=== PATIENT | female | born 1985 | race Caucasian/White ===

== ENCOUNTER 2016-03-21 15:40 | Emergency (ER) | payer SELFPAY ==
[~2016-03-21 15:40] MED LIST: CLIN300C86 PO; HYDR-971 PO; METF500T4 PO; SITA50TA PO
[2016-03-21 15:49] VITALS: BP 112/66
[2016-03-21] MEDS ORDERED: HYDROCODONE/APAP 5/325MG TABLET. PO ONE (16:00)
[2016-03-21] MEDS ORDERED: HYDR-971 PO (16:24)
[2016-03-21] MEDS ORDERED: CYCL10TA2 PO (16:24)
--- NOTE | 2016-03-21 16:25 | PHYS DOC ---
Past Medical History Past Medical History: Anxiety, Diabetes-Type II Additional Past Medical Histor: CHRONIC BACK PAIN, DDD Past Surgical History: No Surgical History Alcohol Use: None Drug Use: None Adult General Chief Complaint Chief Complaint: BACK PAIN OR INJURY HPI HPI Patient is a 30 year old female with history of anxiety, diabetes type 2, chronic back pain, presents today with moderate bilateral lower back pain radiating to bilateral lower extremities that got worse in the last 3 days. Patient denies any injury. Denies any loss of bowel bladder function. Denies any numbness and tingling to bilateral lower extremities. She states the pain is worse when she is ambulating. She states she has tried taking naproxen with no relief. She states she typically is able to manage this pain at home but today it's been very severe. Review of Systems Review of Systems Constitutional: Denies fever or chills [] Eyes: Denies change in visual acuity, redness, or eye pain [] GI: Denies abdominal pain, nausea, vomiting, bloody stools or diarrhea [] : Denies dysuria or hematuria [] Musculoskeletal: Bilateral low back pain radiating to bilateral lower extremities Integument: Denies rash or skin lesions [] Neurologic: Denies headache, focal weakness or sensory changes [] Endocrine: Denies polyuria or polydipsia [] Current Medications Current Medications Current Medications Medications (Trade) Dose Ordered Sig/Malcolm Start Time Stop Time Status Last Admin Dose Admin Acetaminophen/ Hydrocodone Bitart (Lortab 5/325) 2 tab 1X ONCE 03/21/16 16:00 03/21/16 16:11 DC 03/21/16 16:15 2 TAB Allergies Allergies Allergies Coded Allergies Type Severity Reaction Last Updated Verified azithromycin Allergy Unknown Rash 02/02/15 Yes oxycodone Allergy Unknown Rash 02/02/15 Yes tramadol Allergy Unknown Rash 02/02/15 Yes Physical Exam Physical Exam Constitutional: Well developed, well nourished, no acute distress, non-toxic appearance. [] HENT: Normocephalic, atraumatic, bilateral external ears normal, oropharynx moist, no oral exudates, nose normal. [] Abdomen: Bowel sounds normal, soft, no tenderness, no masses, no pulsatile masses. [] Skin: Warm, dry, no erythema, no rash. [] Back: Diffuse tenderness to paraspinal muscles of bilateral low lumbar region, no midline tenderness, no CVA tenderness. [] Extremities: No tenderness, no cyanosis, no clubbing, ROM intact, no edema. [] Neurologic: Alert and oriented X 3, normal motor function, normal sensory function, no focal deficits noted. [] Psychologic: Affect normal, judgement normal, mood normal. [] Current Patient Data Vital Signs Vital Signs Date Time Temp Pulse Resp B/P Pulse Ox O2 Delivery O2 Flow Rate FiO2 03/21/16 15:49 97.9 98 20 97 Room Air 97.9 EKG EKG [] Radiology/Procedures Radiology/Procedures [] Course & Med Decision Making Course & Med Decision Making Pertinent Labs and Imaging studies reviewed. (See chart for details) Patient is in the ED with exacerbation of chronic bilateral low back pain with bilateral sciatica. She has tried Flexeril and naproxen with no relief. She has history of diabetes. I gave her prescription for short supply of hydrocodone to continue taking with the Flexeril and naproxen. She has a PCP, recommended she follows up in the next 7 days. Dragon Disclaimer Dragon Disclaimer This electronic medical record was generated, in whole or in part, using a voice recognition dictation system. Departure Departure Impression: Primary Impression: Acute exacerbation of chronic low back pain Additional Impression: Sciatica Disposition: 01 HOME, SELF-CARE Condition: STABLE Referrals: SYLVIA NAZARIO (PCP) Follow-up with your own doctor in the next 7 days Patient Instructions: Back Pain, Adult, Sciatica Additional Instructions: You were seen for exacerbation of chronic back pain with sciatica. Take the prescribed medicines as needed. You can apply heat or ice to your back. You can exercise as tolerated. Follow-up with your own doctor in the next 7 days. Come back to the emergency room if symptoms worsen especially if you develop any loss of bowel bladder function. Scripts Cyclobenzaprine Hcl 10 Mg Tablet1 Tab PO TID #30 TAB Prov:BOLA HEDRICK APRN 03/21/16 Hydrocodone/Apap 5-325 (Elmo 5-325 Tablet)1 Each Tablet1-2 Tab PO Q4-6HRS #20 TAB Prov:RYLEYBOLA [employer] 03/21/16 Problem Qualifiers Additional Impression: Sciatica Laterality: bilateral Qualified Code: M54.31 - Sciatica, right side KEMIDEANNABOLA DERRICK Mar 21, 2016 16:25
== END 2016-03-21 16:37 | disposition home or self-care (01) ==
LOC: ER 15:40
DX: G89.29 Other chronic pain (principal); M54.5 Low back pain; M54.31 Sciatica, right side; E11.9 Type 2 diabetes mellitus without complications; Z88.1 Allergy status to other antibiotic agents; Z88.5 Allergy status to narcotic agent; Z88.6 Allergy status to analgesic agent
CPT/HCPCS: 99283

== ENCOUNTER 2019-08-20 22:12 | Emergency (ER) | payer OTHER ==
[2019-04-09 11:08] VITALS: BP 122/81
[~2019-08-20 22:12] MED LIST changes: +ALPR0.5T PO; +CLIN300C8 PO; -CLIN300C86 PO; +CYCL10TA2 PO; +DICL75TA PO; +DOXY100C14 PO; +ERTU15TA PO; +HYDR-2761 PO; +HYDR-3164 PO; -HYDR-971 PO; +INSU100I13 SQ; +INSU100I17 SQ; +METF500T16 PO; -METF500T4 PO; +NYST100054 PO; +PROM5SYR2 PO; +SITA100T PO; +VENTOLIN HFA18 GM INH
[2019-08-21] MEDS ORDERED: NAPR-514 PO (10:54)
== END 2019-08-21 00:11 | disposition left against medical advice (07) ==
LOC: ER 22:12
DX: M79.605 Pain in left leg (principal); Z53.21 Procedure and treatment not carried out due to patient leaving prior to being seen by health care provider

== ENCOUNTER 2019-08-21 08:53 | Emergency (ER) | payer OTHER ==
[~2019-08-21] VITALS: Ht 149.9 cm; Wt 95.0 kg
[2019-08-21 09:21] VITALS: BP 141/68
[2019-08-21] MEDS ORDERED: HYDROcodone/APAP 5/325MG 1 TAB TABLET PO ONE (09:30)
--- NOTE | 2019-08-21 10:08 | RAD ---
VENOUS LOWER EXTREMITY LEFT History: Reason: pain, swelling / Spl. Instructions: / History: Comparison: None. Discussion: Multiple longitudinal and transverse high resolution real-time images of the venous system of left lower extremity were obtained with color and Doppler sampling. The common femoral, superficial femoral, popliteal and proximal calf veins are all patent and demonstrate normal flow and compressibility. Normal respiratory phasicity and augmentation is present. Impression: 1. No evidence of deep vein thrombosis. Electronically signed by: Shayne Mahoney DO (08/21/2019 10:05 AM) [id number]
[2019-08-21] MEDS ORDERED: NAPR-514 PO (10:54)
--- NOTE | 2019-08-21 10:55 | PHYS DOC ---
Past Medical History Past Medical History: Anxiety, Diabetes-Type II Additional Past Medical Histor: CHRONIC BACK PAIN, DDD Past Surgical History: No Surgical History Smoking Status: Never Smoker Alcohol Use: Rarely Drug Use: None General Adult EDM: Chief Complaint: LOWER EXT PAIN HPI: HPI: Patient is a 34-year-old female who presents with left calf pain. She states she jumped off a step and heard a pop today. She states this is happened now total of 3 times. She states she is not sure how she initially injured it. She thinks it slightly swollen now and is definitely painful. [] Review of Systems: Review of Systems: Constitutional: Denies fever or chills. [] Eyes: Denies change in visual acuity. [] HENT: Denies nasal congestion or sore throat. [] Respiratory: Denies cough or shortness of breath. [] Cardiovascular: Denies chest pain or edema. [] GI: Denies abdominal pain, nausea, vomiting, bloody stools or diarrhea. [] : Denies dysuria. [] Musculoskeletal: Per HPI [] Integument: Denies rash. [] Neurologic: Denies headache, focal weakness or sensory changes. [] Endocrine: Denies polyuria or polydipsia. [] Lymphatic: Denies swollen glands. [] Psychiatric: Denies depression or anxiety. [] Heart Score: Risk Factors: Risk Factors: DM, Current or recent (<one month) smoker, HTN, HLP, family history of CAD, obesity. Risk Scores: Score 0 - 3: 2.5% MACE over next 6 weeks - Discharge Home Score 4 - 6: 20.3% MACE over next 6 weeks - Admit for Clinical Observation Score 7 - 10: 72.7% MACE over next 6 weeks - Early Invasive Strategies Current Medications: Current Medications Medications (Trade) Dose Ordered Sig/Malcolm Start Time Stop Time Status Last Admin Dose Admin Acetaminophen/ Hydrocodone Bitart (Lortab 5/325) 2 tab 1X ONCE 08/21/19 09:30 08/21/19 09:58 DC 08/21/19 10:00 2 TAB Allergies: Allergies: Allergies Coded Allergies Type Severity Reaction Last Updated Verified azithromycin Allergy Intermediate Rash 04/05/19 Yes oxycodone Allergy Intermediate Rash 04/05/19 Yes tramadol Allergy Intermediate Rash 04/05/19 Yes lanolin Allergy Mild Swelling 04/07/19 Yes Physical Exam: PE: Constitutional: Well developed, well nourished, no acute distress, non-toxic appearance. [] HENT: Normocephalic, atraumatic, bilateral external ears normal, oropharynx moist, no oral exudates, nose normal. [] Eyes: PERRLA, EOMI, conjunctiva normal, no discharge. [] Neck: Normal range of motion, no tenderness, supple, no stridor. [] Cardiovascular:Heart rate regular rhythm, no murmur [] Lungs & Thorax: Bilateral breath sounds clear to auscultation [] Abdomen: Bowel sounds normal, soft, no tenderness, no masses, no pulsatile masses. [] Skin: Warm, dry, no erythema, no rash. [] Back: No tenderness, no CVA tenderness. [] Extremities: She has some tender to palp in the left calf is slightly swollen negative Jhon [] Neurologic: Alert and oriented X 3, normal motor function, normal sensory function, no focal deficits noted. [] Psychologic: Anxious. [] Current Patient Data: Vital Signs: Vital Signs Date Time Temp Pulse Resp B/P (MAP) Pulse Ox O2 Delivery O2 Flow Rate FiO2 08/21/19 09:21 97.0 88 16 141/68 (92) 97 Room Air 97.0 EKG: EKG: [] Radiology/Procedures: Radiology/Procedures: [] Impression: REASON: pain, swelling PROCEDURE: VENOUS LOWER EXTREMITY LEFT VENOUS LOWER EXTREMITY LEFT History: Reason: pain, swelling / Spl. Instructions: / History: Comparison: None. Discussion: Multiple longitudinal and transverse high resolution real-time images of the venous system of left lower extremity were obtained with color and Doppler sampling. The common femoral, superficial femoral, popliteal and proximal calf veins are all patent and demonstrate normal flow and compressibility. Normal respiratory phasicity and augmentation is present. Impression: 1. No evidence of deep vein thrombosis. Course & Med Decision Making: Course & Med Decision Making Pertinent Labs and Imaging studies reviewed. (See chart for details) [] Dragon Disclaimer: Dragon Disclaimer: This electronic medical record was generated, in whole or in part, using a voice recognition dictation system. Departure Departure Impression: Primary Impression: Gastrocnemius strain, left Qualified Codes: S86.112A - Strain of other muscle(s) and tendon(s) of poste rior muscle group at lower leg level, left leg, initial encounter Disposition: HOME, SELF-CARE Condition: STABLE Referrals: HARRISON APPIAH MD (PCP) Patient Instructions: Muscle Strain Additional Instructions: Return to the emergency department with any new or concerning symptoms Scripts Naproxen (NAPROXEN) 500 Mg Tablet 1 TAB PO BID PRN for PAIN, #30 TAB 1 Refill Prov: JAKE ROSE DO 08/21/19 Justicifation of Admission Dx: Justifications for Admission: Justification of Admission Dx: No JAKE ROSE DO Aug 21, 2019 10:54
== END 2019-08-21 11:11 | disposition home or self-care (01) ==
LOC: ER 08:53
DX: S86.112A Strain of other muscle(s) and tendon(s) of posterior muscle group at lower leg level, left leg, initial encounter (principal); E11.9 Type 2 diabetes mellitus without complications; G89.29 Other chronic pain; Z88.1 Allergy status to other antibiotic agents; Z88.5 Allergy status to narcotic agent; Z88.6 Allergy status to analgesic agent; Z88.8 Allergy status to other drugs, medicaments and biological substances; X50.9XXA Other and unspecified overexertion or strenuous movements or postures, initial encounter; Y93.39 Activity, other involving climbing, rappelling and jumping off; Y92.89 Other specified places as the place of occurrence of the external cause; Y99.8 Other external cause status
CPT/HCPCS: 93971; 99284

== ENCOUNTER → 2020-11-08 | Outpatient (CLI) | payer OTHER ==
[~2020-11-08] MED LIST changes: -CLIN300C8 PO; +CLIN300C9 PO; +DOXY-181 PO; -DOXY100C14 PO; +FLUO40CA2 PO; +IBUP-1060 PO; +INSU100V13 SQ; +NAPR-514 PO; +PANT40TA77 PO
--- NOTE | 2020-11-08 13:59 | PDOC1 ---
INITIAL PAIN CONSULT DATE OF SERVICE: DOS: DATE: 11/08/20 TIME: 13:54 CHIEF COMPLAINT: Chief Complaint: Low back and bilateral lower extremity pain HISTORY OF PRESENT ILLNESS: 35-year-old female presents with history of pain low back bilateral lower extremities greater on the left than the right but present for about 10 years on and off in intensity not the result of any specific injury or accident that she is aware of but getting worse with time and activity patient has had physical therapy which was helpful initially has been doing that for the past 2 years but is still doing the exercises at home with only minimal improvement patient reports pain in the low back rating the bilateral lower extremities posterior gluteus posterior thighs posterior calves lateral thighs and calfs as well into the lower leg and the foot on the left side, but not as far on the right. Patient describes as sharp and stabbing throbbing and aching in the back shooting the legs intermittent intensity but radiating to bilateral lower extremities. Patient rates her disability rating 0-10 10 being the worst is a 4 with family home responsibilities sexual haven self-care 5 with recreation and occupational activity 7 with social activity 8 with life support activities. Patient has been taking ibuprofen as well as cyclobenzaprine also hydrocodone the cyclobenzaprine hydrocodone are helpful ibuprofen is only been mildly helpful. Patient reports it wakes her from sleep at least 2-3 times at night does not affect her bowel bladder control does affect her ability to walk although she is not using any assistive devices to ambulate. Patient did have some plain films of the lumbar spine showing good disc base tapering L5-S1 with vacuum disc and osteophytes. Patient reports no bowel or bladder incontinence. PAST MEDICAL HISTORY: PMH: Diabetes PREVIOUS SURGERIES: Past Surgical Hx: x2 CURRENT MEDICATIONS: Current Meds: Active Scripts Medications Dose Route/Sig Max Daily Dose Days Date Category Levemir (Insulin Detemir) 100 Unit/1 Ml Vial 1 Unit SQ HS 11/08/20 Reported Cyclobenzaprine Hcl 10 Mg Tablet 1 Tab PO TID 11/08/20 Reported Ibuprofen 800 Mg Tablet 800 Mg PO TID PRN 11/08/20 Reported Fluoxetine Hcl 40 Mg Capsule 1 Cap PO DAILYWBKFT 11/08/20 Reported Pantoprazole Sodium (Pantoprazole Sodium) 40 Mg Tablet.dr 40 Mg PO DAILYAC 11/08/20 Reported Doxycycline Monohydrate 100 Mg Capsule 1 Cap PO BID 5 04/09/19 Rx Steglatro (Ertugliflozin Pidolate) 15 Mg Tablet 15 Mg PO DAILY 04/05/19 Reported Novolog Flexpen (Insulin Aspart) 100 Unit/1 Ml Insuln.pen 30 Unit SQ TIDWMEALS 04/05/19 Reported Januvia (Sitagliptin Phosphate) 100 Mg Tablet 1 Tab PO DAILY 04/05/19 Reported Metformin Hcl 500 Mg Tablet 1 Tab PO BID 06/12/15 Reported ALLERGIES; Allergies: Coded Allergies: azithromycin (Verified Allergy, Intermediate, Rash, 04/05/19) oxycodone (Verified Allergy, Intermediate, Rash, 04/05/19) has taken and can tolerate hydrocodone tramadol (Verified Allergy, Intermediate, Rash, 04/05/19) lanolin (Verified Allergy, Mild, Swelling, 04/07/19) FAMILY HISTORY: Family Hx: Diabetes, thyroid disease, hypertension, cholesterolemia SOCIAL HISTORY: Social Hx: Patient drinks alcohol 1-3 drinks every 1 to 2 months not smoke says any illegal illicit or recreational drugs is single lives with 1 child at home lives 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 PHYSICAL EXAM: VS: Blood pressure is 118/88 pulse 103 respirations 16 temperature is 98.2 F height is 4 foot 11 inches weight is 235 pounds. PE: PHYSICAL EXAMINATION: GENERAL: The patient is awake, alert, oriented, appropriate, very pleasant in demeanor HEENT: Shows normocephalic, atraumatic. Extraocular movements are intact and symmetrical. Oral cavity: Mucous membranes moist and pink. Dentition is inta ct. NECK: Shows anterior throat supple without palpable lymphadenopathy noted. Swallow reflex symmetrical. CHEST: Shows normal on inspection. Breath sounds are clear bilaterally, distant but no rales rhonchi or wheeze auscultated. HEART: Shows S1, S2 clear. No murmurs auscultated. ABDOMEN: Soft, nontender, nondistended, obese. No palpable organomegaly is noted. No rebound or guarding demonstrated. BACK: Shows spine grossly in the midline. Normal-appearing cervical lordotic curvature. There is slightly increased thoracic kyphosis, some minor flattening of the lumbar lordotic curvature. Lumbar paraspinous muscles show symmetrical on inspection, on palpation shows some moderate tenderness diffusely throughout the upper, middle and lower distribution of the paraspinous muscles bilaterally and also into the lower thoracic paraspinous musculature, firm and tender, but without specific trigger points, without radiation of pain. The patient has good rotational motion of the lumbar spine, both laterally as well as extension and flexion without significant difficulty. No tenderness over the spinous processes, sacrum or sacroiliac regions. EXTREMITIES: Lower extremities show deep tendon reflexes 2+ in the patellar and tendo calcaneus tendons. Motor exam is 5 on a scale of 5 with right dorsiflexion, extension, quadriceps and hamstring flexion and 4/5 on the left. Peripheral pulses are 1 posterior tibial. No peripheral edema is noted bilaterally. Lower extremities are warm and dry to touch, equal in color and appearance. Straight leg raise noted to be positive on the left at approximate 45 degrees decreased with knee flexion, negative on the right. Gaenslen's and Paresh's maneuvers are negative bilaterally. The patient is able to stand, stand on her toes out significant difficulty or loss of balance, walks with a slight favoring gait does appear fairly left lower extremity mildly but not use any assistive devices canes or walker to ambulate. SKIN: Shows warm and dry, good turgor. No edema. No sores, rashes or bruising throughout. IMPRESSION: Impression: 35-year-old female with approximate 10-year history low back bilateral lower extremity pain and radicular fashion worse on the left than the right following L5-S1 dermatomal distribution. Lumbar spine films as noted Diabetes, insulin-dependent Obesity Plan: Options were discussed with the patient eluding conservative management continued physical therapies interventional techniques. As patient is currently doing physical therapies and doing the exercises as well on her own as well taking oral analgesics and without significant improvement he would like to pursue interventional techniques, we did discuss a lumbar epidural steroid injections description as well as anatomical models to describe the procedure. We will wait for preauthorization with patient is a certified or emesis is obtained, we will proceed with translaminar approach L5-S1 lumbar epidural steroid injection at that time with fluoroscopic guidance. In the meantime, patient continue with stretching strength exercises and oral analgesics as currently. NICOLLE BENNETT MD Nov 08, 2020 13:59
== END | disposition home or self-care (01) ==
LOC: PNCL 09:30
PROVIDERS: ATTEND Anesthesiology
DX: M54.5 Low back pain (principal); M79.605 Pain in left leg; M79.604 Pain in right leg; E11.9 Type 2 diabetes mellitus without complications; E66.9 Obesity, unspecified; F41.9 Anxiety disorder, unspecified; F32.9 Major depressive disorder, single episode, unspecified; Z79.4 Long term (current) use of insulin; Z79.899 Other long term (current) drug therapy; Z98.890 Other specified postprocedural states; Z72.89 Other problems related to lifestyle
CPT/HCPCS: G0463

== ENCOUNTER → 2020-11-29 | Outpatient (CLI) | payer OTHER ==
[~2020-11-29] MED LIST changes: +CLIN-94 PO; -CLIN300C9 PO; +IOHEXOL 180 MG/ML 10 ML VIAL. ONE; +methylPREDNISolone ACETATE 80 MG/ML VIAL. ONE
--- NOTE | 2020-11-29 09:05 | PDOC ---
Progress Note - Pain Clinic Date of Service: DOS: DATE: 11/29/20 TIME: 09:01 Diagnosis: Dx: Lumbar radiculopathy with lumbar degenerative disc disease History or Present Illness: HPI: 35-year-old female returns for follow-up with complaints of low back and right lower extremity pain patient reports pain is radiating now more into the right side than it was on the left which was previously patient reports on the right side is her main complaint is low back and right lower extremity pain rating posterior gluteus posterior thigh posterior calf some on the left as well as it was previously but now the right-sided becoming much more noticeable patient r eports is a 10 on scale 10 is worse over the past week 8 on average 5 its least is an 8 today patient scribes aching sharp shooting can be severe on and off in intensity worse with walking standing changing positions better with sitting or laying down but is waking from sleep about once every 6 hours patient reports no bowel or bladder incontinence no loss of motor function but significant fatigability now with the right and left lower extremities but no falls. Physical Exam: VS: Blood pressure is 149/87 pulse 94 respiration 16 temperature 98.1 F weight is 236 pounds PE: PHYSICAL EXAMINATION: GENERAL: The patient is awake, alert, oriented, appropriate, very pleasant in demeanor HEENT: Shows normocephalic, atraumatic. Extraocular movements are intact and symmetrical. Oral cavity: Mucous membranes moist and pink. Dentition is intact. NECK: Shows anterior throat supple without palpable lymphadenopathy noted. Swallow reflex symmetrical. CHEST: Shows normal on inspection. Breath sounds are clear bilaterally, no rales rhonchi wheezes also. HEART: Shows S1, S2 clear. No murmurs auscultated. ABDOMEN: Soft, nontender, nondistended, obese. No palpable organomegaly is noted. BACK: Shows spine grossly in the midline. Normal-appearing cervical lordotic curvature. There is slightly increased thoracic kyphosis, some minor flattening of the lumbar lordotic curvature. Lumbar paraspinous muscles show symmetrical on inspection, on palpation shows some moderate tenderness diffusely throughout the upper, middle and lower distribution of the paraspinous muscles, but without specific trigger points, without radiation of pain. The patient has good rotational motion of the lumbar spine, both laterally as well as extension and flexion without significant difficulty. EXTREMITIES: Lower extremities show deep tendon reflexes 2+ in the patellar and tendo calcaneus tendons. Motor exam is 5 on a scale of 5 with right dorsiflexion, extension, quadriceps and hamstring flexion and 4/5 on the left. Peripheral pulses are 1+ posterior tibial. No peripheral edema is noted bilaterally. Lower extremities are warm and dry to touch, equal in color and appearance. SKIN: Shows warm and dry, good turgor. No edema. No sores, rashes or bruising throughout. Procedure: Procedure: Options discussed with patient. Patient chart reviewed his current medication regimen updated current view of systems updated today as well. We will proceed with a lumbar epidural steroid injection today with fluoroscopic guidance. Risks were discussed including but not limited to: Bleeding, infection, possibility of epidural hematoma and subsequent neurological compromise, dural puncture, headaches, spinal cord and/or nerve damage, side effects of steroid medication, and poor results regarding pain control. Patient understands and wished to proceed. Patient return to the clinic in approximate 2 weeks for follow-up, was counseled as return appointment, activity level, and side effect to be aware of. Medication Injected: Med Injected: Procedure is lumbar epidural steroid injection under local anesthetic using sterile prep and drape at the L5-S1 level using C-arm fluoroscopic guidance in both AP and lateral views medications injected is 120 mg Depo-Medrol +10mL preservative-free normal saline and 2 mL contrast- condition at discharge is stable patient tolerated procedure well had no complications. Condition at Discharge: Condition at Discharge: Condition at discharge is stable, patient already procedure well and had no complications. NICOLLE BENNETT MD Nov 29, 2020 09:05
--- NOTE | 2020-11-29 09:06 | PDOC4 ---
Procedure Note: ICD 10 Code: ICD 10 Code: M54.17 M51.87 Procedure Note: Patient was consented for lumbar epidural steroid injection with fluoroscopic guidance. Risks were discussed including but not limited to: Bleeding, infection, possibility of epidural hematoma and subsequent neurological compromise, dural puncture, headaches, spinal cord and/or nerve damage, side effects of steroid medication, and poor results regarding pain control. Patient understands and wished to proceed. Procedure is lumbar epidural steroid injection under local anesthetic using sterile prep and drape at the L5-S1 level using C-arm fluoroscopic guidance in both AP and lateral views medications injected is 120 mg Depo-Medrol +10mL preservative-free normal saline and 2 mL contrast- condition at discharge is stable patient tolerated procedure well had no complications. NICOLLE BENNETT MD Nov 29, 2020 09:06
== END | disposition home or self-care (01) ==
LOC: PNCL 08:13
PROVIDERS: ATTEND Anesthesiology
DX: M51.16 Intervertebral disc disorders with radiculopathy, lumbar region (principal); E11.9 Type 2 diabetes mellitus without complications; F41.9 Anxiety disorder, unspecified; F32.9 Major depressive disorder, single episode, unspecified; Z79.4 Long term (current) use of insulin; Z79.899 Other long term (current) drug therapy; Z88.1 Allergy status to other antibiotic agents; Z88.8 Allergy status to other drugs, medicaments and biological substances; Z72.89 Other problems related to lifestyle
CPT/HCPCS: 62323; J1040; Q9965

== ENCOUNTER 2021-05-15 16:57 | Emergency (ER) | payer OTHER ==
[~2021-05-15] VITALS: Ht 149.9 cm; Wt 105.0 kg
[~2021-05-15 16:57] MED LIST changes: +CYCL10TA19 PO; -CYCL10TA2 PO; -IOHEXOL 180 MG/ML 10 ML VIAL. ONE; -methylPREDNISolone ACETATE 80 MG/ML VIAL. ONE
[2021-05-15 17:00] VITALS: BP 137/97
--- NOTE | 2021-05-15 17:24 | PHYS DOC ---
Past Medical History Past Medical History: Anxiety, Diabetes-Type II Additional Past Medical Histor: CHRONIC BACK PAIN, DDD Past Surgical History: No Surgical History Smoking Status: Never Smoker Alcohol Use: Rarely Drug Use: None General Adult EDM: Chief Complaint: ABDOMINAL PAIN HPI: HPI: Patient is a 36 year old female who presents with chronic upper abdominal pain with nausea and vomiting that will go up into her chest with some burning type pain for last 2 months. She states it is intermittent. She states is just worse now. She states she has an appointment with Dr. Eli for an EGD this coming Wednesday. She states that she takes Zofran and omeprazole and diabetes medications daily. She denies shortness of breath, dizziness, headache, fever, cough, alcohol use, drug use, diarrhea, urinary symptoms, back pain, syncope, numbness or tingling. Review of Systems: Review of Systems: Constitutional: Denies fever or chills. [] Eyes: Denies change in visual acuity. [] HENT: Denies nasal congestion or sore throat. [] Respiratory: Denies cough or shortness of breath. [] Cardiovascular: +chest pain or denies edema. [] GI: + abdominal pain, +nausea, +vomiting, denies bloody stools or diarrhea. [] : Denies dysuria. [] Musculoskeletal: Denies back pain or joint pain. [] Integument: Denies rash. [] Neurologic: Denies headache, focal weakness or sensory changes. [] Endocrine: Denies polyuria or polydipsia. [] Lymphatic: Denies swollen glands. [] Psychiatric: Denies depression or anxiety. [] Heart Score: C/O Chest Pain: Yes HEART Score for Chest Pain: HEART Score for Chest Pain Response (Comments) Value History Slighlty/Non-Suspicious 0 ECG Normal 0 Age < 45 0 Risk Factors 1 or 2 Risk Factors 1 Troponin < Normal Limit 0 Total 1 Risk Factors: Risk Factors: DM, Current or recent (<one month) smoker, HTN, HLP, family history of CAD, obesity. Risk Scores: Score 0 - 3: 2.5% MACE over next 6 weeks - Discharge Home Score 4 - 6: 20.3% MACE over next 6 weeks - Admit for Clinical Observation Score 7 - 10: 72.7% MACE over next 6 weeks - Early Invasive Strategies Allergies: Allergies: Allergies Coded Allergies Type Severity Reaction Last Updated Verified azithromycin Allergy Intermediate Rash 04/05/19 Yes oxycodone Allergy Intermediate Rash 04/05/19 Yes tramadol Allergy Intermediate Rash 04/05/19 Yes lanolin Allergy Mild Swelling 04/07/19 Yes Physical Exam: PE: Constitutional: Well developed, well nourished, no acute distress, non-toxic appearance. [] HENT: Normocephalic, atraumatic, bilateral external ears normal, oropharynx moist, no oral exudates, nose normal. [] Eyes: PERRLA, EOMI, conjunctiva normal, no discharge. [] Neck: Normal range of motion, no tenderness, supple, no stridor. [] Cardiovascular:Heart rate regular rhythm, no murmur [] Lungs & Thorax: Bilateral breath sounds clear to auscultation [] Abdomen: Bowel sounds normal, soft, right and left upper quadrant tenderness, no masses, no pulsatile masses. [] Skin: Warm, dry, no erythema, no rash. [] Back: No tenderness, no CVA tenderness. [] Extremities: No tenderness, no cyanosis, no clubbing, ROM intact, no edema. [] Neurologic: Alert and oriented X 3, normal motor function, normal sensory function, no focal deficits noted. [] Psychologic: Affect normal, judgement normal, mood normal. [] Current Patient Data: Vital Signs: Vital Signs Date Time Temp Pulse Resp B/P (MAP) Pulse Ox O2 Delivery O2 Flow Rate FiO2 05/15/21 17:00 98.2 91 18 137/97 (110) 98 Room Air 98.2 EKG: EK and read by Dr. Liz as a sinus rhythm and no STEMI Radiology/Procedures: Radiology/Procedures: [] Impression: [facility] [address] [place], [place] [id number] IMAGING REPORT Signed PATIENT: BLANCA JIN HACCOUNT: [id number] : 1985 LOCATION: ER AGE: 36 SEX: F EXAM STATUS: REG ER ORD. PHYSICIAN: ANDREINA MAIER APRN REASON: PAIN, VOMITING PROCEDURE: PORTABLE CHEST 1V XR CHEST 1V Clinical Indication: Reason: PAIN, VOMITING / Spl. Instructions: / History: Comparison: AP chest April 09, 2019. Findings: The cardiomediastinal silhouette is normal. Lungs are clear. There is no pneumothorax. No pleural effusion is appreciated. No acute bone abnormality. IMPRESSION: No acute cardiopulmonary process. Electronically signed by: Orville Hernandez MD (05/15/2021 5:46 PM) [facility] DICTATED and SIGNED BY: ORVILLE HERNANDEZ MD DATE: 05/15/21 1745 [facility] [address] [place] [address] IMAGING REPORT Signed PATIENT: BLANCA JIN HACCOUNT: [id number] : 1985 LOCATION: ER AGE: 36 SEX: F EXAM STATUS: REG ER ORD. PHYSICIAN: ANDREINA MAIER APRN REASON: PAIN,TENDERNESS IN UPPER QUADRANTS, VOMITING PROCEDURE: CT ABD PELV W/ IV CONTRST ONLY Exam: CT abdomen and pelvis with contrast INDICATION: Pain/tenderness and upper quadrant, vomiting TECHNIQUE: Sequential axial images through the abdomen and pelvis obtained following the administration of 75 mL of Isovue-370 IV contrast. Sagittal and coronal reformatted images were reconstructed from the axial data and reviewed. Exposure: One or more of the following in the visualized dose reduction techniques were utilized for this examination: 1. Automated exposure control 2. Adjustment of the MA and/or KV according to patient size 3. Use of iterative of reconstructive technique Comparisons: 06/12/2015 FINDINGS: Heart size is normal. No pericardial effusion. Visualized lung bases are clear. No pleural effusion. Liver, spleen, pancreas, gallbladder and adrenals are unremarkable. No perinephric inflammation or hydronephrosis. No renal or ureteral calculi are identified. Uterus is nonenlarged. No abnormal adnexal mass. Moderate amount stool is noted in the colon. Appendix is normal. Small bowel is unremarkable. No free intra-abdominal air or fluid. No obstruction. Abdominal aorta has normal course and caliber. Abdominal vasculature is patent. No enlarged intra-abdominal lymph nodes are identified. No suspicious osseous lesions or acute fractures. IMPRESSION: No acute process identified within the abdomen or pelvis. Electronically signed by: Bobby Davalos MD (05/15/2021 6:40 PM) [facility] DICTATED and SIGNED BY: BOBBY DAVALOS MD DATE: 05/15/211832 Course & Med Decision Making: Course & Med Decision Making Pertinent Labs and Imaging studies reviewed. (See chart for details) See HPI. Alert and oriented x4. Ambulatory with steady gait. Speaks in full clear sentences. Tenderness to the upper quadrants. Abdomen otherwise soft and nontender. Skin pink warm and dry. Afebrile. Chest x-ray shows no acute findings. CT abdomen pelvis shows no acute findings but does show moderate stool. Patient will be given senna laxative prescription and Zofran. Patient is successfully p.o. challenge. [] Dragon Disclaimer: Dragon Disclaimer: This electronic medical record was generated, in whole or in part, using a voice recognition dictation system. Departure Departure Impression: Primary Impression: Constipation Qualified Codes: K59.00 - Constipation, unspecified Additional Impression: Abdominal pain Qualified Codes: R10.9 - Unspecified abdominal pain Disposition: HOME / SELF CARE / HOMELESS Condition: STABLE Referrals: HARRISON APPIAH MD (PCP) Patient Instructions: Abdominal Pain (Nonspecific) Additional Instructions: Follow up on Wednesday with Dr De La Cruz for EGD as scheduled. Drink plenty of fluids. Stay away from spicy or fatty food and see if that helps your abdominal pain. Eat a high fiber diet. If anything worsens return to the ED. Scripts Sennosides/Docusate Sodium (SENNA PLUS TABLET) 1 Each Tablet 2 TAB PO QHS PRN for CONSTIPATION for 14 Days, #28 TAB 0 Refills Prov: ANDREINA MAIER APRN 05/15/21 Ondansetron (ONDANSETRON ODT) 4 Mg Tab.rapdis 1 TAB PO PRN Q6-8HRS, #16 TAB Prov: ANDREINA MAIER [employer]TER 05/15/21 ANDREINA MAIER APRN May 15, 2021 17:24
[2021-05-15] MEDS ORDERED: FAMOTIDINE 20 MG/2 ML VIAL IVP ONE (17:30)
[2021-05-15] MEDS ORDERED: ONDANSETRON PF 4 MG/2 ML VIAL. IVP ONE (17:30)
[2021-05-15] MEDS ORDERED: IV NORMAL SALINE 1000ML BAG 1,000 ML IV SCH (17:30)
[2021-05-15] MEDS ORDERED: fentaNYL PF VIAL 100 MCG/2 ML VIAL IVP ONE (17:30)
[2021-05-15 17:48] LABS: CLARITY,URINE CLEAR; COLOR,URINE YELLOW
--- NOTE | 2021-05-15 17:48 | RAD ---
XR CHEST 1V Clinical Indication: Reason: PAIN, VOMITING / Spl. Instructions: / History: Comparison: AP chest April 09, 2019. Findings: The cardiomediastinal silhouette is normal. Lungs are clear. There is no pneumothorax. No pleural eff usion is appreciated. No acute bone abnormality. IMPRESSION: No acute cardiopulmonary process. Electronically signed by: Orville Hernandez MD (05/15/2021 5:46 PM) [facility]
[2021-05-15 17:49] LABS: BACTERIA,URINE FEW /HPF (0-FEW); BILIRUBIN,URINE NEGATIVE (NEG); NITRITE,URINE NEGATIVE (NEG); PH,URINE 5.5 (<5.0-8.0); PROTEIN,URINE NEGATIVE (NEG-TRACE); RBC,URINE 0 /HPF (0-2); UROBILINOGEN,URINE 0.2 mg/dL (0.2 mg/dL); WBC,URINE 0 /HPF (0-4)
[2021-05-15 17:52] LABS: BARBITURATES NEG (NEG); BENZODIAZEPINES NEG (NEG); CANNABINOIDS NEG (NEG); COCAINE NEG (NEG); METHADONE NEG (NEG); OPIATES NEG (NEG); PHENCYCLIDINE NEG (NEG)
[2021-05-15 17:53] LABS: AMPHETAMINE/METHAMPHETAMINE NEG (NEG)
[2021-05-15 18:05] LABS: BASO # 0.1 x10^3/uL (0.0-0.2); BASO % 1 % (0-3); EOS # 0.4 x10^3/uL (0.0-0.7); EOS % 4 % (0-3); HEMATOCRIT 40.9 % (36.0-47.0); HEMOGLOBIN 13.2 g/dL (12.0-15.5); LYMPH % 31 % (24-48); MEAN CORPUSCULAR HEMOGLOBIN 24 pg (25-35); MEAN CORPUSCULAR HGB CONC 32 g/dL (31-37); MEAN CORPUSCULAR VOLUME 75 fL (79-100); MONO # 0.6 x10^3/uL (0.0-1.1); MONO % 7 % (0-9); NEUT # 5.7 x10^3/uL (1.8-7.7); NEUT % 58 % (31-73); PLATELET COUNT 270 x10^3/uL (140-400); RED BLOOD COUNT 5.42 x10^6/uL (3.50-5.40); RED CELL DISTRIBUTION WIDTH 16.4 % (11.5-14.5); WHITE BLOOD COUNT 9.8 x10^3/uL (4.0-11.0)
[2021-05-15 18:14] LABS: CALCIUM 8.7 mg/dL (8.5-10.1); CREATININE 0.8 mg/dL (0.6-1.0); GFR 81.6; POTASSIUM 3.7 mmol/L (3.5-5.1)
[2021-05-15] MEDS ORDERED: IOHEXOL 300 MG/ML 100ML VIAL. IV ONE (18:15)
[2021-05-15 18:17] LABS: ALBUMIN 3.1 g/dL (3.4-5.0); ALBUMIN/GLOBULIN RATIO 0.8 (1.0-1.7); TOTAL BILIRUBIN 0.4 mg/dL (0.2-1.0)
[2021-05-15] MEDS ORDERED: CONTRAST GIVEN. MC PRN (18:30)
--- NOTE | 2021-05-15 18:42 | RAD ---
Exam: CT abdomen and pelvis with contrast INDICATION: Pain/tenderness and upper quadrant, vomiting TECHNIQUE: Sequential axial images through the abdomen and pelvis obtained following the administrati on of 75 mL of Isovue-370 IV contrast. Sagittal and coronal reformatted images were reconstructed fro m the axial data and reviewed. Exposure: One or more of the following in the visualized dose reduction techniques were utilized for this examination: 1. Automated exposure control 2. Adjustment of the MA and/or KV according to patient size 3. Use of iterative of reconstructive technique Comparisons: 06/12/2015 FINDINGS: Heart size is normal. No pericardial effusion. Visualized lung bases are clear. No pleural effusion. Liver, spleen, pancreas, gallbladder and adrenals are unremarkable. No perinephric inflammation or hydronephrosis. No renal or ureteral calculi are identified. Uterus is nonenlarged. No abnormal adnexal mass. Moderate amount stool is noted in the colon. Appendix is normal. Small bowel is unremarkable. No free intra-abdominal air or fluid. No obstruction. Abdominal aorta has normal course and caliber. Abdominal vasculature is patent. No enlarged intra-abdominal lymph nodes are identified. No suspicious osseous lesions or acute fractures. IMPRESSION: No acute process identified within the abdomen or pelvis. Electronically signed by: Bobby Knox MD (05/15/2021 6:40 PM) [facility]
[2021-05-15] MEDS ORDERED: ONDA4TAB12 PO (18:50)
[2021-05-15] MEDS ORDERED: SENN1TAB62 PO (18:50)
[2021-05-15] MEDS ORDERED: LIDO:MAALOX 1:1 20 ML SINGLE DOSE. ONE (18:52)
[2021-05-15] MEDS ORDERED: LIDO:MAALOX 1:1 20 ML SINGLE DOSE. SWSW ONE (19:00)
--- NOTE | 2021-05-16 04:59 | EKG ---
[facility] [address] [place] [address] Test Date: 2021-05-15 Test Time: 17:28:13 Pat Name: BLANCA JIN Department: Room: Gender: F [employer] Dispatcher: : 1985 Requested By: ANDREINA MAIER Order Number: [id number] Reading MD: Tony Goddard Measurements Intervals [place] Rate: 94 P: 32 MS: 122 QRS: 28 QRSD: 86 T: 32 QT: 352 QTc: 446 Interpretive Statements SINUS RHYTHM MILD NON SPECIFIC ST CHANGES Electronically Signed On 05-18-2021 15:16:31 CDT by Tony Goddard
== END 2021-05-15 19:19 | disposition home or self-care (01) ==
LOC: ER 16:57
DX: K59.00 Constipation, unspecified (principal); E11.9 Type 2 diabetes mellitus without complications; G89.29 Other chronic pain; Z88.1 Allergy status to other antibiotic agents; Z88.5 Allergy status to narcotic agent; Z88.6 Allergy status to analgesic agent; Z88.8 Allergy status to other drugs, medicaments and biological substances
CPT/HCPCS: 36415; 71045; 74177; 80053; 80307; 81001; 81025; 83690; 84484; 85025; 93005; 96361; 96374; 96375; 99285; J2405; J3010; J3490; J7030; Q9967